=== PATIENT | male | born 1985 | race Caucasian/White ===

== ENCOUNTER 2024-05-21 05:38 | Day surgery (SDC) | payer MEDICAID ==
[2024-05-19 11:35] LABS: BASOPHILS # (AUTO) 0.1 X10'3 (0-0.2); EOSINOPHILS # (AUTO) 0.3 X10'3 (0-0.9); EOSINOPHILS % (AUTO) 3.5 % (0-6); LYMPHOCYTES # (AUTO) 2.9 X10'3 (1.1-4.8); LYMPHOCYTES % (AUTO) 32.5 % (21-51); MEAN CORPUSCULAR HEMOGLOBIN 29.4 PG (27.0-31.0); MEAN CORPUSCULAR HGB CONC 34.7 g/dL (33.0-36.5); MEAN CORPUSCULAR VOLUME 84.7 FL (78-98); MONOCYTES # (AUTO) 0.7 X10'3 (0-0.9); MONOCYTES % (AUTO) 8.2 % (2-12); NEUTROPHILS # (AUTO) 4.9 X10'3 (1.8-7.7); NEUTROPHILS % (AUTO) 54.8 % (42-75); PRE OP HEMATOCRIT 43.2 % (42.0-52.0); PRE OP PLATELET COUNT 192 X10'3 (140-440); RED CELL DISTRIBUTION WIDTH 14.2 % (11.5-14.5)
[2024-05-19 11:56] LABS: ALBUMIN 3.6 G/DL (3.4-5.0); ALKALINE PHOSPHATASE 89 IU/L (46-116); BLOOD UREA NITROGEN 17 MG/DL (7-18); BUN/CREATININE RATIO 13.7 (10.0-20.0); CALCIUM 8.6 MG/DL (8.5-10.1); CHLORIDE 104 MMOL/L (99-107); CREATININE 1.24 MG/DL (0.60-1.10); PRE OP ALT 23 U/L (30-65); PRE OP ANION GAP 6 (8-16); PRE OP AST 22 U/L (10-37); PRE OP BILIRUB, TOTAL 0.7 MG/DL (0.0-1.0); PRE OP POTASSIUM 4.3 MMOL/L (3.4-5.1); PRE OP SODIUM 138 MMOL/L (135-145); TOTAL CARBON DIOXIDE 27.8 MMOL/L (24-32); TOTAL PROTEIN 7.1 G/DL (6.4-8.2); eGFR 65 ML/MIN
[2024-05-19 11:58] LABS: PRE OP GLUCOSE 205 MG/DL (70-104)
[~2024-05-21] VITALS: Ht 180.3 cm; Wt 146.3 kg
[~2024-05-21 05:38] MED LIST: AMLO5TAB16 PO; CHOL500050 PO; CLON-478 PO; DOXE10CA3 PO; EMPA10TA PO; INSU100V49; LORA10TA7 PO; LOSA50TA64 PO; ROSU40TA71 PO
[2024-05-21 06:00] VITALS: BP 136/78; PULSE 79; RESP 16; TEMP 98.5; O2SAT 96
[2024-05-21] MEDS: Cefazolin 3 GM/100ML NS IVPB 100 ML IV ONE (06:28)
[2024-05-21] MEDS: famotidine 20mg tablet PO ONE (06:28)
[2024-05-21] MEDS: ringers solution, lacted 1,000 ML IV SCH (06:29)
[2024-05-21] MEDS ORDERED: LIDOcaine 2% (20mg/ml) 5ml vial ONE ×2 (07:18→08:46)
[2024-05-21] MEDS ORDERED: BUPIVAcaine 2.5mg/ml inj 50ml vial (contains preservative) ONE (07:19)
[2024-05-21] MEDS ORDERED: morphine 2 MG/ML inj. syringe IV PRN (07:50)
[2024-05-21] MEDS ORDERED: ringers solution, lacted 1,000 ML IV SCH (07:50)
[2024-05-21] MEDS ORDERED: labetalol 20mg/4ml (5mg/ml) syringe IV PRN (07:50)
[2024-05-21] MEDS ORDERED: ondansetron/PF 4mg/2ml inj IV PRN (07:50)
[2024-05-21] MEDS ORDERED: morphine 4 MG/ML inj SYRINge IV PRN (07:50)
[2024-05-21] MEDS ORDERED: BUPIVAcaine/PF 2.5mg/ml (0.25%) 10ml vial ONE (08:47)
[2024-05-21] MEDS ORDERED: fentaNYL/PF 50MCG/1 ML 2ML syringe ONE (08:54)
[2024-05-21] MEDS ORDERED: MIDAZolam 1 MG/ML 5ML VIAL ONE (08:54)
[2024-05-21] MEDS ORDERED: flumazenil 0.1 mg/ml inj. 10mL vial IV ONE (09:03)
[2024-05-21] MEDS: LIDOcaine 2% (20mg/ml) 5ml vial SQ ONE (09:09)
[2024-05-21 09:15] VITALS: BP 126/77; PULSE 78; RESP 16; O2SAT 98
[2024-05-21 09:20] VITALS: BP 128/73; PULSE 74; RESP 12; O2SAT 95
[2024-05-21 09:30] VITALS: BP 114/73; PULSE 73; RESP 12; O2SAT 94
== END 2024-05-21 09:45 | disposition home or self-care (01) ==
LOC: PAS 05:38
PROVIDERS: ATTEND Orthopaedic Surgery Hand Surgery
DX: G56.02 Carpal tunnel syndrome, left upper limb (principal); I10 Essential (primary) hypertension; E10.42 Type 1 diabetes mellitus with diabetic polyneuropathy; E66.01 Morbid (severe) obesity due to excess calories; F90.9 Attention-deficit hyperactivity disorder, unspecified type; G47.33 Obstructive sleep apnea (adult) (pediatric); Z87.891 Personal history of nicotine dependence; Z79.4 Long term (current) use of insulin; Z79.899 Other long term (current) drug therapy; Z98.890 Other specified postprocedural states; Z68.42 Body mass index [BMI] 45.0-49.9, adult; Z91.030 Bee allergy status; Z91.040 Latex allergy status; Z88.8 Allergy status to other drugs, medicaments and biological substances
CPT/HCPCS: 29848; 36415; 80053; 82948; 85025; J0690; J2250; J3010; J3490; J7030; J7120; Z7506; Z7512; A4215; A4565; A6449; A7000

== ENCOUNTER 2025-04-21 15:18 | Emergency (ER) | payer MEDICAID ==
[~2025-04-21] VITALS: Ht 180.3 cm; Wt 142.7 kg
[~2025-04-21 15:18] MED LIST changes: -ROSU40TA71 PO; +ROSU40TA89 PO
--- NOTE | 2025-04-21 16:22 | RADIOLOGY REPORT ---
Indication: ANKLE PAIN Technique: DI ANKLE, COMPLETE(3VW MIN)ANKLECPLT Comparison: None FINDINGS/IMPRESSION: Acute fracture of the distal tibial metadiaphysis extending to the medial malleolus, tibial plafond w ith intra-articular extension. Age indeterminate fracture of the fibular tip /lateral malleolus with fracture fragment measuring 8 m m. Extensive right ankle soft tissue edema most pronounced along the medial malleolus. Internal fixation of the forefoot / midfoot and hindfoot with intramedullary trung. Hardware lucency up to 3 mm may indicate loosening, infection. Talocalcaneal , calcaneocuboid fixation screws with perih ardware lucency up to 3 mm in the cuboid bone with similar differential. Atherosclerotic disease. Osteopenia.
--- NOTE | 2025-04-21 17:03 | Physician Documentation ---
History of Present Illness ~ Chief Complaint: Ankle pain Stated Complaint: R FOOT PAIN Time Seen by MD: 17:35 HPI This is a 40-year-old male with recent history of reconstructive surgery to his right ankle who presents with increased right ankle pain after re-injuring the ankle last week, patient reports ankle surgery was in September of this year, patient reports that he has contacted the orthopedist/embossing machine tender who performed the surgery who directed the patient to be seen in the ER. Patient is in a walking boot on presentation. Medication Reconciliation Allergies: Coded Allergies: aloe vera (Verified Allergy, Unknown, HIVES, 05/20/24) latex (Verified Allergy, Unknown, HIVES, 05/20/24) Uncoded Allergies: BEE VENOM (Allergy, Unknown, HIVES, 05/20/24) Scheduled Amlodipine Besylate (Amlodipine Besylate), 1 TAB PO DAILY, (Reported) Cholecalciferol (Vitamin D3) (Vitamin D3), 1 CAP PO DAILY, (Reported) Clonidine HCl (Clonidine HCl ER), 2 TAB PO HS, (Reported) Doxepin HCl (Doxepin HCl), 1-2 CAP PO HS, (Reported) Empagliflozin (Jardiance), 1 TAB PO DAILY, (Reported) Insulin Lispro (Insulin Lispro), 20 UNITS TID, (Reported) Loratadine (Loratadine), 1 TAB PO DAILY, (Reported) Losartan Potassium (Losartan Potassium), 1 TAB PO DAILY, (Reported) Rosuvastatin Calcium (Rosuvastatin Calcium), 1 TAB PO DAILY, (Reported) Review of Systems ROS As stated above in the HPI, otherwise all systems are reviewed and negative. Physical Exam Vital Signs: Temperature: 97.9, Source: Temporal, Heart Rate: 96, Respiratory Rate: 18, BP: 150/82, Pulse Oximetry: 97, Weight: 142.730 Oxygen Flow Rate: 0 Physical Exam VITALS: Reviewed and as above. GENERAL: Alert, nontoxic appearing, no apparent distress. RESPIRATORY: No increased work of breathing, no respiratory distress, speaking in full clear sentences CV: Pedal pulse intact to right lower extremity, right toes brisk capillary refill MUSCULOSKELETAL: Right lower extremity in walking boot, range of motion intact in right toes, ankle tender to palpation, swollen as compared to left ankle SKIN: Mild ecchymosis to posterior forefoot Progress Progress Note I spoke with on-call orthopedist who recommends patient follow up with his embossing machine tender/orthopedist outpatient Results/Orders Results/Orders Orders - MALINA CASTILLO Ortho Orders (04/21/25 17:59) Completed Orders - MALINA CASTILLO 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 Age indeterminate fracture of the fibular tip /lateral malleolus with fracture fragment measuring 8 mm. Extensive right ankle soft tissue edema most pronounced along the medial malleolus. Internal fixation of the forefoot / midfoot and hindfoot with intramedullary trung. Hardware lucency up to 3 mm may indicate loosening, infection. Talocalcaneal , calcaneocuboid fixation screws with perihardware lucency up to 3 mm in the cuboid bone with similar differential. Atherosclerotic disease. Osteopenia. Electronically Signed by:SHILPI GARCIA MD Date & Time: 04/21/251621 Dictated by: SHILPI GARCIA MD Dictation date and time: 04/21/251621 I have reviewed and agree with the radiology report. I have reviewed and interpreted the imaging as: Fracture of distal tibia and lateral malleolus Medical Decision Making Findings MSE performed in triage and patient returned to ED lobby by nursing staff to await available ED room This 40 year old male presented with right ankle pain for the past week after re -injuring the ankle following reconstructive surgery on the area approximately 6 months prior, imaging demonstrated multiple fractures including acute fracture of distal tibia and an age indeterminate fracture of the lateral malleolus. It was reassuring the foot was neurovascularly intact and patient's pain was controlled. I disscussed the case with glass deposition tender orthopedist who recommended patient be splinted and made non-weight bearing and follow up with patient's embossing machine tender. Patient was placed in a splint by orthodontic treatment coordinator, limb was neurovascularly intact after placement and patient provided crutches. Patient is otherwise well appearing with no other injuries on physical exam, and is appropriate for outpatient follow up. Patient provided home care instructions, follow up instructions and return to care precautions which he verbalized understanding of. General Diff Dx:Considerations: Include: Abrasion, Contusion, Fracture, Hematoma, Laceration, Neurovascular injury, Open fracture, Sprain Departure Time of Disposition: 18:07 Disposition: 01 HOME / SELF CARE / HOMELESS Impression: Primary Impression: Fracture of tibial plafond Additional Impression: Fracture of tibia with fibula, left, closed Qualified Codes: S82.202A - Unspecified fracture of shaft of left tibia, initial encounter for closed fracture; S82.402A - Unspecified fracture of shaft of left fibula, initial encounter for closed fracture Condition: Improved Discharge Instructions: Ankle Fracture Additional Instructions: Please use the crutches to keep weight off your ankle and foot, follow up soon as possible with Dr. Cantu. Use ibuprofen and or Tylenol as needed for pain as directed by [id number] packaging, you may return to the emergency department if you change your mind about wanting [place] prescribed otherwise disc uss pain management with Dr. Cantu. Please follow up with your primary care provider in the next few days. Please return to the emergency department for any new or worsening concerning symptoms including but not limited to worsening pain or swelling of your ankle or loss of function in your toes. Referrals: NO PRIMARY CARE PROVIDER (PCP) Education Educated: Patient Educated regarding: diagnosis, treatment, prognosis, need for follow up Signature Scribe Signature: No Scribe Attestation: The note accurately reflects work and decisions made by me.SHAY Vang 04/24/25 09:30 MALINA CASTILLO Apr 21, 2025 17:03
[2025-04-21] MEDS: HYDROcodone/acetaminophen 5mg/325mg tablet PO ONE (18:23)
[2025-04-21 20:19] VITALS: BP 142/82; PULSE 82; RESP 16; TEMP 98.1; O2SAT 98
== END 2025-04-21 20:22 | disposition home or self-care (01) ==
LOC: ER 15:18
DX: S82.391A Other fracture of lower end of right tibia, initial encounter for closed fracture (principal); X58.XXXA Exposure to other specified factors, initial encounter; Y93.89 Activity, other specified; Y92.89 Other specified places as the place of occurrence of the external cause; Y99.8 Other external cause status; Z91.040 Latex allergy status; Z79.899 Other long term (current) drug therapy; Z79.4 Long term (current) use of insulin
CPT/HCPCS: 29515; 73610; 99283; A6446; A6449

== ENCOUNTER 2025-06-07 05:12 | Inpatient (IN) | payer MEDICAID ==
--- NOTE | 2025-05-31 14:02 | ELECTROCARDIOGRAPH REPORT ---
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 Reading MD: Dr. FELISHA Latham Measurements Intervals [place] Rate: 100 P: 57 [place]: 161 QRS: 59 QRSD: 105 T: 80 QT: 322 QTc: 416 Interpretive Statements Sinus tachycardia Ventricular premature complex Anterior infarct, old Electronically Signed On 05-31-2025 17:35:[address] FELISHA Latham Please click the below link to view image of tracing.
[2025-05-31 14:23] LABS: MEAN PLATELET VOLUME 8.2 FL (7.4-10.4); PRE OP HEMATOCRIT 48.7 % (42.0-52.0); PRE OP HEMOGLOBIN 16.6 g/dL (14.0-17.9); PRE OP PLATELET COUNT 222 X10'3 (140-440); PRE OP WHITE BLOOD COUNT 8.0 10'3 (4.8-10.8); RED CELL DISTRIBUTION WIDTH 14.1 % (11.5-14.5)
[2025-05-31 14:40] LABS: CREATININE 1.24 MG/DL (0.60-1.10); PRE OP ALT 22 U/L (30-65); PRE OP ANION GAP 11 (8-16); PRE OP AST 17 U/L (10-37); PRE OP BILIRUB, TOTAL 0.8 MG/DL (0.0-1.0); PRE OP POTASSIUM 4.1 MMOL/L (3.4-5.1); PRE OP SODIUM 141 MMOL/L (135-145); TOTAL CARBON DIOXIDE 25.4 MMOL/L (24-32); eGFR 65 ML/MIN
[2025-05-31 14:45] LABS: PRE OP GLUCOSE 206 MG/DL (70-104)
[2025-06-07] VITALS (25 sets, daily range): BP systolic 123–191; BP diastolic 54–118; PULSE 76–95; RESP 12–22; TEMP 97.5–98.3; O2SAT 92–99
[~2025-06-07] VITALS: Ht 180.3 cm; Wt 136.7 kg
[~2025-06-07 05:12] MED LIST changes: +ANAS1TAB10 PO; +ARIP2TAB67 PO; +ATOM40CA7 PO; -CLON-478 PO; +ERGO125018 PO; +FLUV150C2 PO; +IMIP25TA PO; -INSU100V49; +TIRZ5PEN3 SQ; +[UNRECOGNIZED DRUG - OTHER] SQ
[2025-06-07] MEDS: ringers solution, lacted 1,000 ML IV SCH ×2 (06:14→12:52)
[2025-06-07] MEDS: VANCOMYCIN/H2O 1.5g/300mL PB 300 ML IV ONE (06:14)
[2025-06-07] MEDS: Cefazolin 3 GM/100ML NS IVPB 100 ML IV ONE (06:14)
[2025-06-07] MEDS ORDERED: midazolam 1 mg/ML 2ml injection ONE (07:03)
[2025-06-07] MEDS ORDERED: fentaNYL /PF 50mcg/ml 5ml ampule ONE (07:05)
[2025-06-07] MEDS ORDERED: PCA WASTE DOCUMENTATION 1 MG ML MC SCH (07:05)
[2025-06-07] MEDS ORDERED: bisacodyl 10mg suppository rectal RC PRN (07:05)
[2025-06-07] MEDS ORDERED: ondansetron/PF 4mg/2ml inj IV PRN ×2 (07:05→07:50)
[2025-06-07] MEDS ORDERED: magnesium hydroxide 30ml (MOM) UD suspension PO PRN (07:05)
[2025-06-07] MEDS ORDERED: hydrALAZINE 20mg/ml inj. IV PRN (07:50)
[2025-06-07] MEDS ORDERED: fentaNYL/PF 50MCG/1 ML 2ML syringe IV PRN (07:50)
[2025-06-07] MEDS ORDERED: propofol inj 20 ML IV ONE (08:31)
[2025-06-07] MEDS ORDERED: acetaminophen 1,000mg/100ml IV 100 ML IV ONE (08:48)
[2025-06-07] MEDS: acetaminophen 1,000mg/100ml IV 100 ML IV PRN (09:12)
[2025-06-07] MEDS: HYDROmorphone/PF 0.2 MG/ML SYRINGE IV PRN ×2 (09:14→10:17)
[2025-06-07] MEDS: labetalol 20mg/4ml (5mg/ml) syringe IV PRN (09:33)
[2025-06-07] MEDS: fentaNYL/PF 50MCG/1 ML 2ML syringe IV PRN (09:42)
[2025-06-07] MEDS: oxyCODONE IR 5mg (immed. release) tablet PO PRN (09:58)
--- NOTE | 2025-06-07 10:21 | OPERATIVE REPORT ---
Operative Report Operative Report Procedure: Amputation of right leg, below the knee. Surgeon: Dr. Heriberto Ortiz [employer] Technician: Ora Hudson PA-C Anesthesiologist: Dr. 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 It should be noted that the main vasculature was very small. Posterior tibial artery estimated to be approximately 3 mm in diameter. Extensive collateral flow through the more superficial tissues. Estimated Blood Loss: 150 mL Complications: None Procedure: The risks, benefits, expected results, and possible complications of the planned procedure had been explained to the patient and informed consent obtained. The patient was taken to the operating room where a general anesthetic was administered. The right leg was prepped and draped in the usual sterile fashion with the patient in the supine position on the operating table. A timeout was taken prior to surgery confirming patient identification, operative side operative site, planned procedure, administration of pre-operative antibiotics, site marking, recognition of allergies, and confirming presence of all necessary implants and instruments. Anterior and posterior incisions for a standard amputation of the leg below the knee were mapped out with a marking. The leg was elevated and exsanguinated and the tourniquet inflated to 300 mm Hg. A knife was utilized to make the skin incisions and then electrocautery was utilized to dissect through the deeper tissue. Appropriate muscle flaps were formed both anteriorly and posteriorly and the tibia and fibula both exposed. Major vessels were cauterized, or clipped with vascular clips, or tied with 0 Vicryl ties, depending on the size and location of the vessels. An oscillating saw was utilized to cut both the tibia and fibula, with the fibula be cut slightly shorter. The wound was then irrigated thoroughly and the tourniquet deflated. Hemostasis was obtained with electrocautery. The muscle flaps were brought from posterior to anterior and sutured to the fascia of the leg anteriorly to give good muscular padding over the tip of the tibia. A drain was placed below the flap. The wound was irrigated thoroughly with normal saline and then closed in layers with #1 Vicryl suture for deep tissue, #0 strata fix suture for subcutaneous tissue, and wilfred for skin. Sterile dressings were applied, and the patient was returned to the recovery room in satisfactory condition. HERIBERTO ORTIZ MD Jun 07, 2025 10:21
[2025-06-07] MEDS: potassium cl 20mEq in 1/2 NS 1,000 ML IV SCH (12:37)
[2025-06-07] MEDS: imipramine 25mg tablet PO SCH (12:41)
[2025-06-07] MEDS: ergocalciferol (vit D2) capsule 50,000 UNITS (1,250mcg) CAPSULE PO SCH (13:58)
[2025-06-07] MEDS: EMPAGLIFLOZIN 10 MG TABLET PO SCH (14:01)
[2025-06-07] MEDS: ceFAZolin/D5W- 1GM premix 50 ML IV SCH (17:47)
[2025-06-07] MEDS ORDERED: dextrose 50%-water 50ml dispensing syringe IV PRN ×2 (20:15)
[2025-06-07] MEDS: vancomycin/NS 1 GM ADD-VANTAGE 250 ML IV SCH (20:15)
[2025-06-07] MEDS ORDERED: DEXTROSE 15 GM of carb/4 tabs (each vial/BOTTLE has 4 tablets) PO PRN ×2 (20:15)
[2025-06-07] MEDS: FLUVOXAMINE 150 MG PO SCH (20:18)
[2025-06-07] MEDS: INSULIN LISPRO 100 UNIT/ML INSULN.PEN MULTI-DOSE SQ SCH (21:21)
[2025-06-08 02:00] VITALS: BP 142/84; PULSE 95; RESP 16; TEMP 97.9; O2SAT 96
[2025-06-08 05:39] LABS: MEAN PLATELET VOLUME 8.5 FL (7.4-10.4); RED CELL DISTRIBUTION WIDTH 14.4 % (11.5-14.5)
[2025-06-08 06:00] VITALS: BP 142/91; PULSE 92; RESP 16; TEMP 98.2; O2SAT 96
[2025-06-08 06:03] LABS: TOTAL CARBON DIOXIDE 27.6 MMOL/L (24-32)
--- NOTE | 2025-06-08 07:03 | PROGRESS NOTE ---
Progress Note Ortho Ortho Post Op Day #: 1 Follow Up Progress Note The patient was admitted on date of surgery. He continues to have significant muscle cramping within the stump. He was prescribed Flexeril yesterday which has not decreased muscle spasms or pain. Baclofen ordered in lieu of Flexeril. Gabapentin also placed for neurogenic pain. Patient has yet to work with physical therapy. He is instructed that physical therapy will be coming by later today. He is weight-bearing as tolerated and should practice on transfers. We plan to keep him for an additional overnight stay and potential discharge to rehab facility if unsafe to go home. ROS ROS No new complaints Exam Exam: Alert and Oreinted x4, In no acute distress, Dressing clean and dry, Wound clean and dry, Distal neurovasc intact Problem/Assessment/Plan Assessment\Plan: Doing Well, Start Physicial Therapy Results/Orders Result Diagram: 06/08/25 0443 06/08/25 0443 ANITA MAI [facility] Jun 08, 2025 07:03
[2025-06-08] MEDS: ergocalciferol (vit D2) capsule 50,000 UNITS (1,250mcg) CAPSULE PO SCH (07:31)
[2025-06-08] MEDS: TIRZEPATIDE 5 MG/0.5 ML SQ SCH (08:00)
[2025-06-08 10:00] VITALS: BP 132/88; PULSE 92; RESP 16; TEMP 98; O2SAT 90
[2025-06-08] MEDS: JUVEN Smoothie Arginine/Glut./Ca2+Bmb (Juven 19.3pkt) 240ml cup PO SCH (17:30)
[2025-06-08 18:00] VITALS: BP 138/84; PULSE 87; RESP 16; TEMP 98.7; O2SAT 94
[2025-06-08 22:00] VITALS: BP 146/89; PULSE 91; RESP 18; TEMP 98.2; O2SAT 96
[2025-06-09 05:52] LABS: MEAN PLATELET VOLUME 8.4 FL (7.4-10.4); RED CELL DISTRIBUTION WIDTH 14.4 % (11.5-14.5)
[2025-06-09 06:00] VITALS: BP 141/83; PULSE 78; RESP 16; TEMP 98.3; O2SAT 95
--- NOTE | 2025-06-09 06:47 | PROGRESS NOTE ---
Progress Note Ortho Ortho Post Op Day #: 2 Follow Up Progress Note Patient is on postop day two of admission following a [id number] amputation of the right leg. Overall he is doing very well. He states that with the change to baclofen and the addition of gabapentin his muscle spasms have drastically improved and are no longer a concern. Physical therapy has yet to work with this patient. He does have a knee scooter at this time. Spoke with Physical therapy who is aware to work with him today. Patient is hopeful he is able to go home/self care later today so long as he meets physical therapy criteria and feel safe to do so. ROS ROS No new complaints Exam Exam: Alert and Oreinted x4, Vital signs are stable, In no acute distress, Dressing clean and dry, Wound clean and dry, Calves: soft bilaterally, Calves: non-tender bilat Problem/Assessment/Plan Assessment\Plan: Doing Well, Start Physicial Therapy, Anticipate disch to home Problems/Diagnosis: (1) Below knee amputation Results/Orders Result Diagram: 06/09/25 0440 06/08/25 0443 Problem Qualifiers (1) Below knee amputation: ANITA MAI PAC Jun 09, 2025 06:47
[2025-06-09 10:00] VITALS: BP 137/82; PULSE 91; RESP 17; TEMP 97.5; O2SAT 92
--- NOTE | 2025-06-09 15:44 | DISCHARGE SUMMARY ---
Discharge Summary Ortho CC ~ Discharge Summary *Problems/Diagnosis: (1) Below knee amputation Status: Acute Admission Diagnosis: chronic non-union right foot Discharge Diagnosis\Comment: see above Operations\Procedures see above Consultants: none Complications: none Condition on DC: Stable Discharge Summary: Patient was admitted on date of surgery, surgery went without complication. Admission was uneventful. Patient meet criteria with physical therapy for discharge home/self care and will be discharged today. Total Time Spent on D/C: Up to 30 Minutes Medications Home Meds: Home Medications Active Reported Atomoxetine HCl 40 Mg Capsule 1 Cap PO DAILY [Lispro Insulin Pump] SQ PRN Loratadine 10 Mg Tablet 10 Mg PO HS Vitamin D2 (Ergocalciferol (Vitamin D2)) 1,250 Mcg (72921 Unit) Capsule 1 Cap PO Q7D Arimidex* (Anastrozole) 1 Mg Tablet 1 Tab PO DAILY Fluvoxamine Maleate 150 Mg Cap.er.24h 1 Cap PO HS Aripiprazole 2 Mg Tablet 1 Tab PO HS Imipramine Hcl 25 Mg Tablet 1 Tab PO BID Zepbound (Tirzepatide) 5 Mg/0.5 Ml Pen.injctr 5 Mg SQ QWEDNESDAY Rosuvastatin Calcium 40 Mg Tablet 1 Tab PO HS Vitamin D3 (Cholecalciferol (Vitamin D3)) 125 Mcg (5000 Unit) Capsule 1 Cap PO DAILY Losartan Potassium 50 Mg Tablet 1 Tab PO DAILY Amlodipine Besylate 5 Mg Tablet 1 Tab PO DAILY Doxepin HCl 10 Mg Capsule 1-2 Cap PO HS Jardiance (Empagliflozin) 10 Mg Tablet 1 Tab PO DAILY Supervising Physician Supervising Physician: Dr. Heriberto Ortiz Problem Qualifiers (1) Below knee amputation: ANITA MAI Jun 09, 2025 15:42
== END 2025-06-09 16:25 | disposition home health service (06) | DRG 850 ==
LOC: PAS IN 05:12 → ORTHO 4S 11:13
PROVIDERS: ADMIT Orthopaedic Surgery; ATTEND Orthopaedic Surgery
PROC: 0Y6H0Z1 Detachment at Right Lower Leg, High, Open Approach (ICD-10-PCS; principal; 2025-06-07 06:56)
DX: M96.0 Pseudarthrosis after fusion or arthrodesis (principal); E10.610 Type 1 diabetes mellitus with diabetic neuropathic arthropathy; I10 Essential (primary) hypertension; Y83.9 Surgical procedure, unspecified as the cause of abnormal reaction of the patient, or of later complication, without mention of misadventure at the time of the procedure; Y92.89 Other specified places as the place of occurrence of the external cause
CPT/HCPCS: 36415; 80051; 80053; 82948; 85025; 87081; 93005; 97110; 97161; 97530; A4615; A4618; A6449; A7000; G0378; J0131; J0690; J1171; J1815; J2250; J2704; J3010; J3373; J3375; J3480; J3490; J7120